=== PATIENT | female | born 1985 | race Caucasian/White ===

== ENCOUNTER 2021-02-25 11:03 | Emergency (ER) | payer MEDICAID, OTHER ==
[~2021-02-25] VITALS: Ht 160 cm; Wt 63.5 kg
[2021-02-25 11:12] VITALS: BP 125/84
--- NOTE | 2021-02-25 11:22 | NUR ---
Patient ambulated to bed 3. RN evaluating the patient at bedside.
--- NOTE | 2021-02-25 11:24 | NUR ---
35 y/o F coming in from home with c/c right knee pain since Wednesday. Patient presents A&Ox4, ambulatory with slightly uneven gait d/t pain, and states she was doing half of a split on Wednesday, tried to get up from it and felt her right knee "pop/buckle." Patient reports 9/10, sharp/intermittent, non-radiating pain to the right knee. Slight swelling noted to right medial knee. Patient states Aleve 400mg and RICE therapy with minor relief. Patient presents with limited ROM of right knee, and states laying down/elevation of right knee helps the pain. Patient denies any ALOC, numbness/tingling, trauma/falls/injury, body pain, dizziness, headache. Pt placed onto blood pressure cuff, pulse ox. VSS. Bed locked in lowest position, side rails x 1, call light in reach. PMH/Sx/Meds: Denies NKA
--- NOTE | 2021-02-25 11:30 | NUR ---
Right knee pain s/p doing splits on Thursday 02/22; states she "felt a pop." 07/04, sharp/constant, non-radiating. Worsens with pressure/walking. Hasn't gotten better with +ice/elevation/rest. Aleve 400mg without relief. PMH/Meds/Sx: Rogeries JELANI
[2021-02-25] MEDS: HYDROcodone/APAP 5/325 MG 1 TAB TAB PO ONE (11:39)
--- NOTE | 2021-02-25 11:39 | NUR ---
RAD at bedside.
--- NOTE | 2021-02-25 13:17 | NUR ---
Patient discharged with v/s stable. Written and verbal after care instructions given and explained. Patient verbalized understanding. Ambulatory with steady gait. All questions addressed prior to discharge. Advised to follow up with PMD.
== END 2021-02-25 13:15 | disposition home or self-care (01) ==
LOC: MED 11:03
DX: S89.91XA Unspecified injury of right lower leg, initial encounter (principal); X58.XXXA Exposure to other specified factors, initial encounter; Y93.89 Activity, other specified; Y92.89 Other specified places as the place of occurrence of the external cause; Y99.8 Other external cause status
CPT/HCPCS: 73562; 73590; 99284